=== PATIENT | female | born 1975 | race Caucasian/White ===

== ENCOUNTER 2018-02-08 22:42 | Emergency (ER) | payer OTHER ==
--- NOTE | 2018-02-08 23:27 | ED CARDIAC/CP/PALPITATIONS ---
History of Present Illness General Chief Complaint: Chest Pain Stated Complaint: BIBA FOR CHEST PAIN Source: patient, family Exam Limitations: no limitations Vital Signs & Intake/Output Vital Signs & Intake/Output Vital Signs Date Time Temp Pulse Resp B/P B/P Pulse O2 O2 Flow FiO2 Mean Ox Delivery Rate 02/09 0349 98.5 59 16 97/55 99 Room Air 02/09 0214 54 18 100/54 Room Air 02/08 2302 97.9 62 18 102/61 98 Room Air ED Intake and Output 02/09 0000 02/08 1200 Intake Total 0 Output Total Balance 0 Intake, Oral 0 Reconcile Medications No Known Home Medications Triage Note: PT BIBA FROM FAMILY'S HOUSE. PER EMS REPORT PT REPORTED INTERMITTENT L SIDED CHEST PRESSURE YESTERDAY. PT FLEW FROM [place] TO [place] TODAY AND REPORTS WORSENING OF CHEST PAIN THIS EVENING. NSR ON MONITOR. Triage Nurses Notes Reviewed? yes : No Patient currently breastfeeds: No HPI: Patient presents for evaluation of a left-sided chest pain that began about 2 days ago. Patient states that she has just been "feeling off". The pain is a flashing sharp chest pain occurring in the left chest that radiates to the left shoulder face and upper extremity. Patient had episodes yesterday but states that tonight she had a very severe episode that concerned her enough to come to the emergency department. The pain was very severe but fortunately has resolved. She just flew in from [place] visiting family in the area. She states she travels frequently. She does refer a past medical history of chest pain with episodes of stress that have been occurring for "years". Patient states that the prior chest pain episodes are not similar to cedric's episode of pain. The patient denies cigarette smoking or drug use. She is an occasional alcohol user. Family history is pertinent for hypertension in grandmother and a question of coronary artery disease in the grandfather. Patient's parents have no significant health issues. Fortunately the patient has no SX currently. Past History Travel History Traveled to [place] past 21 day No Medical History Any Pertinent Medical History? see below for history Surgical History Surgical History: non-contributory Psychosocial History What is your primary language Lao Tobacco Use: Never used Family History Hx Contributory? No Review of Systems Review of Systems Constitutional: Reports: no symptoms. EENTM: Reports: no symptoms. Respiratory: Reports: no symptoms. Cardiovascular: Reports: chest pain. GI: Reports: no symptoms. Genitourinary: Reports: no symptoms. Musculoskeletal: Reports: no symptoms. Skin: Reports: no symptoms. Neurological/Psychological: Reports: no symptoms. Hematologic/Endocrine: Reports: no symptoms. Immunologic/Allergic: Reports: no symptoms. All Other Systems: Reviewed and Negative Physical Exam Physical Exam Cardiovascular: SEE BELOW Comments: Gen.: Well-nourished, well-developed, no acute respiratory distress. Head: Normocephalic, atraumatic. Eyes: Normal inspection bilaterally Ears: Normal inspection bilaterally Nose: Normal inspection Throat/mouth : Moist mucosa Neck: Supple, full range of motion, no goiter, no carotid bruits, normal and equal carotid pulses Heart: Regular rate and rhythm, no murmurs rubs or gallops Lungs: Clear to auscultation bilaterally with normal air entry Chest: Nontender Back: Normal range of motion Abdomen: Soft, nontender, nondistended, normal bowel sounds Extremities: Normal range of motion grossly, equal radial pulses, no cyanosis clubbing or edema, calves nontender Neurologic: Cranial nerves grossly intact, speech is clear Skin: warm and dry Psychiatric: Calm, cooperative, no apparent delusions or hallucinations Core Measures ACS in differential dx? No CVA/TIA Diagnosis No Sepsis Present: No Sepsis Focused Exam Completed? No Progress Differential Diagnosis: ANGINA, mi, AORTIC DISSECTION, PULMONARY EMBOLISM Plan of Care: Orders Procedure Date/time Status TROPONIN LEVEL 02/09 0330 Complete EKG 02/09 0330 Active Add-on Test (ER Only) 02/083 Active HUMAN BETA HCG SCREEN 02/08 2339 Complete Telemetry/Cloth Laminating Supervisor 02/08 2326 Active TROPONIN LEVEL 02/08 2326 Complete MAGNESIUM 02/08 2326 Complete D-DIMER 02/08 2326 Complete CBC WITHOUT DIFFERENTIAL 02/08 2326 Complete BASIC METABOLIC PANEL 02/08 2326 Complete EKG 02/08 2243 Active Laboratory Tests 02/09/18 0344: Troponin I < 0.01 02/08/182338: Anion Gap 7, Estimated GFR > 60, BUN/Creatinine Ratio 21.0, Glucose 86, Calcium 9.2, Magnesium 2.0, Troponin I < 0.01, Total Beta HCG NEGATIVE, D-Dimer High Sensitivty < 200, CBC w Diff NO MAN DIFF REQ, RBC 4.48, MCV 87.1, MCH 29.6, MCHC 34.0, RDW 13.3, MPV 9.4, Gran % 62.4, Lymphocytes % 28.7, Monocytes % 8.0, Eosinophils % 0.4, Basophils % 0.5, Absolute Granulocytes 4.2, Absolute Lymphocytes 1.9, Absolute Monocytes 0.5, Absolute Eosinophils 0, Absolute Basophils 0 Diagnostic Imaging: Discussed w/RAD: CT Scan. Radiology Impression: PATIENT: LANE MEDINA PRESENT AGE: 42 PATIENT ACCOUNT NO: [id number] : 73 LOCATION: [facility] ORDERING PHYSICIAN: Hung Hernandez MD SERVICE DATE: 02/08/18 EXAM TYPE: CAT - CT NECK W IV CONTRAST EXAMINATION: CT NECK WITH CONTRAST CLINICAL INFORMATION: Left chest and neck pain. Left arm pain. COMPARISON: None TECHNIQUE: Postcontrast axial images were obtained through the neck after the CTA of the chest. 95 mL Optiray 320 was given. Coronal and sagittal reformatted images are performed at the CT scanner DLP: 137.78. mGy-cm FINDINGS: Since the study was performed after the CT of the chest the level of contrast enhancement of the vessels is lower than was seen on the CT of the chest. There is no gross evidence for dissection of the vessels. No aneurysm. No thrombus. The partially visualized intracranial structures are normal including the [place] of [place]. No acute change CT neck. Fat planes of the neck are normal. No inflammation or fluid collection. No bulky lymphadenopathy. Paranasal sinuses normally aerated. The thyroid, submandibular glands and parotid glands are normal. No prevertebral soft tissue swelling. The tracheal air column from the nasopharynx to the trachea is normal. There is degenerative disc height narrowing with endplate spurs at C6-C7. IMPRESSION: Normal CT of neck. The opacification of the vessels is limited as the exam was performed after the CTA of the chest. No gross evidence for carotid dissection or thrombus. DICTATED BY: Colby Mayer MD DATE/ TIME DICTATED:02/09/18108 TANDEM MILL STICKER:PRUDENCIO DATE/TIME TRANSCRIBED: 02/09/18108 CONFIDENTIAL, DO NOT COPY WITHOUT APPROPRIATE AUTHORIZATION. < Electronically signed in Other Vendor System> SIGNED BY: Colby Mayer MD [id number], PATIENT: LANE MEDINA PRESENT AGE: 42 PATIENT ACCOUNT NO: [id number] : 73 LOCATION: [facility] ORDERING PHYSICIAN: Hung Hernandez MD SERVICE DATE: 02/08/18 EXAM TYPE: CAT - CTA CHEST- AORTIC DISSECTION EXAMINATION: CT ANGIOGRAM CHEST, aortic CLINICAL INFORMATION: Left chest and neck pain. Left arm pain. COMPARISON: None. TECHNIQUE: Noncontrast axial images obtained through the chest. IV contrast administered with images repeated through the chest. 95 mL Optiray 320 intravenous contrast. Coronal and sagittal reformatted images are performed at CT scanner. Axial MIP postprocessing sequence performed through the chest. DLP: 540.45 mGy-cm. FINDINGS: The patient was imaged with the arms down which does cause artifact. VASCULAR: Thoracic aorta is normal. There is normal enhancement of the great vessels. Normal three-vessel arch present. There is no aneurysm or aortic dissection. No dissection of the origin of great vessels. The pulmonary arteries are well-opacified and show no evidence of pulmonary embolism. MEDIASTINUM: No mediastinal mass. No significant lymphadenopathy. There is no pericardial effusion. LUNGS: Small calcified granuloma in the anterior right lower lobe, image 35 (3). There is no acute infiltrate. No interstitial or reticular opacity. The central bronchial airways are open. No nodule or infiltrate. Central bronchial airways open. FLUID: There is no pericardial effusion. There is no pleural effusion. AXILLA: No significant lymphadenopathy. UPPER ABDOMEN: Adrenal glands normal. Visualized portions of liver and spleen unremarkable. SKELETAL: No suspicious focal bone finding. IMPRESSION: Normal CT of the chest. No vascular abnormality of the aorta or the origin of great vessels. DICTATED BY : Colby Mayer MD DATE/TIME DICTATED:02/09/18101 TANDEM MILL STICKER:PRUDENCIO DATE/TIME TRANSCRIBED:02/09/18101 CONFIDENTIAL, DO NOT COPY WITHOUT APPROPRIATE AUTHORIZATION. <Electronically signed in Other Vendor System> SIGNED BY: Colby Mayer MD 02/09/18201 Initial ED EKG: NSR, rate (60) Comments: 02/09/2018 4:46:56 AM I have updated carry on her test results. There appears to be no indication of an acute VT, lung pathology, vascular disease pulmonary embolism or musculoskeletal injury. I've explained that the cause of her symptoms is unclear at this time. I have requested she follow up with her primary care physician as soon as possible for further evaluation. Departure Departure Disposition: HOME OR SELF CARE Condition: Stable Clinical Impression Primary Impression: Atypical chest pain Referrals: Cecilia FROST,[place] Additional Instructions: Follow-up with your primary care physician for reevaluation of your chest pain as soon as possible. You may also consider following up with the manager financial reporting listed all your here in the [facility]. Return if any concerns or sudden worsening. Please note that there might be incidental findings in your evaluation that are unrelated to the current emergency department visit. Please notify your primary care doctor about this emergency department visit in order to obtain and review all of the testing performed so that these incidental findings can be monitored as needed. If you had an x-ray performed, please understand that some fractures may not be seen on the initial set of x-rays. If your symptoms persist you might need a repeat set of x-rays to check for such a fracture. If you had a laceration evaluated, please understand that foreign bodies such as glass or wood may not be visible to the naked eye or on plain x-rays. If the wound becomes red, swollen, increasingly more painful or if there is any drainage from the wound, please have it reevaluated by a physician for the possibility of a retained foreign body. If you're unable to follow up as outlined in the discharge instructions please return to the emergency department. Thank you for choosing the [facility] Emergency Department for your care. It was a pleasure to serve you today. Hung Hernandez M.D. [facility] Departure Forms: Customer Survey General Discharge Information Prescriptions: Current Visit Scripts No Known Home Medications Critical Care Note Critical Care Note Critical Care Time: non-applicable
[2018-02-08 23:49] LABS: ABSOLUTE BASOPHIL COUNT 0 /CUMM (0.0-0.2); ABSOLUTE EOSINOPHIL COUNT 0 /CUMM (0.0-0.7); ABSOLUTE GRANULOCYTE CT 4.2 /CUMM (1.4-6.5); ABSOLUTE LYMPH COUNT 1.9 /CUMM (1.2-3.4); ABSOLUTE MONOCYTE COUNT 0.5 /CUMM (0.10-0.60); BASOPHIL % 0.5 % (0.0-2.0); EOSINOPHIL % 0.4 % (0-5); GRANULOCYTE % 62.4 % (42.2-75.2); MEAN CORPUSCULAR HGB 29.6 PG (27.0-31.0); MEAN CORPUSCULAR VOLUME 87.1 FL (81.0-99.0); MEAN PLATELET VOLUME 9.4 FL (7.4-10.4); PLATELET COUNT 212 /CUMM (130-400); RBC DISTRIBUTION WIDTH 13.3 % (11.5-14.5); RED BLOOD CELL CT 4.48 /CUMM (4.20-5.40); WHITE BLOOD CELL COUNT 6.7 /CUMM (4.8-10.8)
--- NOTE | 2018-02-09 01:20 | CT SCAN REPORT ---
EXAMINATION: CT NECK WITH CONTRAST CLINICAL INFORMATION: Left chest and neck pain. Left arm pain. COMPARISON: None TECHNIQUE: Postcontrast axial images were obtained through the neck after the CTA of the chest. 95 mL Optiray 320 was given. Coronal and sagittal reformatted images are performed at the CT scanner DLP: 137.78. mGy-cm FINDINGS: Since the study was performed after the CT of the chest the level of contrast enhancement of the vessels is lower than was seen on the CT of the chest. There is no gross evidence for dissection of the vessels. No aneurysm. No thrombus. The partially visualized intracranial structures are normal including the [place] of [place]. No acute change CT neck. Fat planes of the neck are normal. No inflammation or fluid collection. No bulky lymphadenopathy. Paranasal sinuses normally aerated. The thyroid, submandibular glands and parotid glands are normal. No prevertebral soft tissue swelling. The tracheal air column from the nasopharynx to the trachea is normal. There is degenerative disc height narrowing with endplate spurs at C6-C7. IMPRESSION: Normal CT of neck. The opacification of the vessels is limited as the exam was performed after the CTA of the chest. No gross evidence for carotid dissection or thrombus.
--- NOTE | 2018-02-09 02:02 | CT SCAN REPORT ---
EXAMINATION: CT ANGIOGRAM CHEST, aortic CLINICAL INFORMATION: Left chest and neck pain. Left arm pain. COMPARISON: None. TECHNIQUE: Noncontrast axial images obtained through the chest. IV contrast administered with images repeated through the chest. 95 mL Optiray 320 intravenous contrast. Coronal and sagittal reformatted images are performed at CT scanner. Axial MIP postprocessing sequence performed through the chest. DLP: 540.45 mGy-cm. FINDINGS: The patient was imaged with the arms down which does cause artifact. VASCULAR: Thoracic aorta is normal. There is normal enhancement of the great vessels. Normal three-vessel arch present. There is no aneurysm or aortic dissection. No dissection of the origin of great vessels. The pulmonary arteries are well-opacified and show no evidence of pulmonary embolism. MEDIASTINUM: No mediastinal mass. No significant lymphadenopathy. There is no pericardial effusion. LUNGS: Small calcified granuloma in the anterior right lower lobe, image 35 (3). There is no acute infiltrate. No interstitial or reticular opacity. The central bronchial airways are open. No nodule or infiltrate. Central bronchial airways open. FLUID: There is no pericardial effusion. There is no pleural effusion. AXILLA: No significant lymphadenopathy. UPPER ABDOMEN: Adrenal glands normal. Visualized portions of liver and spleen unremarkable. SKELETAL: No suspicious focal bone finding. IMPRESSION: Normal CT of the chest. No vascular abnormality of the aorta or the origin of great vessels.
[2018-02-09 06:47] VITALS: BP 100/50
== END 2018-02-09 07:05 ==
LOC: ERH 22:42
PROVIDERS: Emergency Medicine
DX: R07.89 Other chest pain (principal)
CPT/HCPCS: 93005; 93010